=== PATIENT | female | born 1990 | race American Indian/Alaskan Native ===

== ENCOUNTER 2018-08-15 11:17 | Emergency (ER) | payer BC ==
--- NOTE | 2018-08-15 11:34 | Emergency Department Report ---
Chief Complaint: Chest Pain Stated Complaint: CHEST PAIN Time Seen by Provider: 08/15/18 11:30 - HPI History of Present Illness: This is a 28 y.o. female that presents to ER with chest pain. PMH costochondritis. Patient states she is moving out of apartment and lifting heavy items alone. Reports pain is sharp and under left breast radiating to back. Patient reports pain for 3-4 days. - Exam Vital Signs: Vital Signs 08/15/18 11:29 Temperature 98.1 F Pulse Rate 75 Respiratory 16 Rate Blood Pressure 148/83 O2 Sat by Pulse 100 Oximetry MSE screening note: Focused history and physical exam performed. Due to findings the following was ordered: EKG & CXR ACC for further evaluation. ED Disposition for MSE Condition: Stable
--- NOTE | 2018-08-15 11:53 | XRay Report ---
CHEST 2 VIEWS INDICATION: Chest pain. COMPARISON: None similar at this institution. FINDINGS: PA and lateral chest radiographs demonstrate normal cardiomediastinal silhouette. Clear lungs. Intact bones. CONCLUSION: No acute disease in the chest. Thank you for the opportunity to participate in this patient's care.
--- NOTE | 2018-08-15 14:02 | Emergency Department Report ---
ED General Adult HPI - General Chief complaint: Chest Pain Stated complaint: CHEST PAIN Time Seen by Provider: 08/15/18 11:30 Source: patient Mode of arrival: Ambulatory Limitations: No Limitations - History of Present Illness Initial comments: I patient is a 28-year-old Female who states she's been moving boxes struck from her apartment which is on third floor with no elevator as well as carry her child up and down stairs last several days is complaining of some chest wall tenderness. Patient states the pain is mostly in the left chest underneath her left breast and left back that is worse with movement and with deep breathing. Patient denies any cough, congestion diaphoresis nausea vomiting fevers chills at this time. Patient states the pain when she moves is a sharp pain that can be of upwards of 10 out of 10 in severity. Patient states when she still which is not breathing deeply pain his right mandible just a dull ache. Severity scale (0 -10): 10 - Related Data Previous Rx's Medication Instructions Recorded Last Taken Type HYDROcodone/ACETAMINOPHEN 1 each PO Q6HR PRN #12 tablet 08/15/18 Unknown Rx [Hydrocodone-Acetamin 5-325 mg] Ibuprofen [Ibu] 800 mg PO Q8H PRN #20 tablet 08/15/18 Unknown Rx methOCARBAMOL [Robaxin TAB] 500 mg PO Q6H PRN #14 tablet 08/15/18 Unknown Rx Allergies Allergy/AdvReac Type Severity Reaction Status Date / Time No Known Allergies Allergy Verified 08/15/18 11:19 ED Review of Systems ROS: Stated complaint: CHEST PAIN Other details as noted in HPI Comment: All other systems reviewed and negative ED Past Medical Hx - Past Medical History Additional medical history: COSTOCHONDRITIS - Social History Smoking Status: Never Smoker Substance Use Type: None - Medications Home Medications: Home Medications Medication Instructions Recorded Confirmed Last Taken Type HYDROcodone/ACETAMINOPHEN 1 each PO Q6HR PRN #12 tablet 08/15/18 Unknown Rx [Hydrocodone-Acetamin 5-325 mg] Ibuprofen [Ibu] 800 mg PO Q8H PRN #20 tablet 08/15/18 Unknown Rx methOCARBAMOL [Robaxin TAB] 500 mg PO Q6H PRN #14 tablet 08/15/18 Unknown Rx ED Physical Exam - General Limitations: No Limitations General appearance: alert, in no apparent distress - Head Head exam: Present: atraumatic, normocephalic - Eye Eye exam: Present: normal appearance - ENT ENT exam: Present: mucous membranes moist - Neck Neck exam: Present: normal inspection - Respiratory Respiratory exam: Present: normal lung sounds bilaterally. Absent: respiratory distress, wheezes, rales, rhonchi, chest wall tenderness - Cardiovascular Cardiovascular Exam: Present: regular rate, normal rhythm. Absent: systolic murmur, diastolic murmur, rubs, gallop - GI/Abdominal GI/Abdominal exam: Present: soft, normal bowel sounds. Absent: distended, tenderness, guarding, rebound - Extremities Exam Extremities exam: Present: normal inspection - Back Exam Back exam: Present: normal inspection - Neurological Exam Neurological exam: Present: alert, oriented X3 - Psychiatric Psychiatric exam: Present: normal affect, normal mood - Skin Skin exam: Present: warm, dry, intact, normal color. Absent: rash ED Course Vital Signs 08/15/18 11:29 Temperature 98.1 F Pulse Rate 75 Respiratory 16 Rate Blood Pressure 148/83 O2 Sat by Pulse 100 Oximetry ED Medical Decision Making - Radiology Data Chest x-ray is within normal limits Critical care attestation.: If time is entered above; I have spent that time in minutes in the direct care of this critically ill patient, excluding procedure time. ED Disposition Clinical Impression: Costochondral chest pain Disposition: -01 TO HOME OR SELFCARE Is pt being admited?: No Does the pt Need Aspirin: No Condition: Stable Instructions: Costochondritis (ED) Referrals: FLORECITA PARIS MD [Primary Care Provider] - 3-5 Days Time of Disposition: 14:02
[2018-08-15 14:17] VITALS: BP 137/88
== END 2018-08-15 14:17 | disposition home or self-care (01) ==
LOC: ED 11:17
DX: M94.0 Chondrocostal junction syndrome [Tietze] (principal)
CPT/HCPCS: 71046; 93005; 93010

== ENCOUNTER 2020-02-29 01:27 | Emergency (ER) | payer BC, OTHER ==
[2020-02-29 02:25] VITALS: BP 159/90
[2020-02-29 02:33] LABS: Basophils # (Auto) 0.1 K/mm3 (0.0-0.1); Basophils % (Auto) 1.2 % (0.0-1.8); Eosinophils # (Auto) 0.1 K/mm3 (0.0-0.4); Eosinophils % (Auto) 2.1 % (0.0-4.3); Hematocrit 36.2 % (30.3-42.9); Hemoglobin 12.3 gm/dl (10.1-14.3); Lymphocytes # (Auto) 3.4 K/mm3 (1.2-5.4); Lymphocytes % (Auto) 48.6 % (13.4-35.0); Mean Corpuscular HGB Conc 34 % (30-34); Mean Corpuscular Volume 86 fl (79-97); Monocytes # (Auto) 0.6 K/mm3 (0.0-0.8); Monocytes % (Auto) 8.1 % (0.0-7.3); Platelet Count 431 K/mm3 (140-440); Red Blood Count 4.22 M/mm3 (3.65-5.03); Red Cell Distribution Width 15.4 % (13.2-15.2)
[2020-02-29 02:34] LABS: Blood Urea Nitrogen 11 mg/dL (7-17); Calcium 9.6 mg/dL (8.4-10.2); Hemolysis Index 3
[2020-02-29 02:38] LABS: BUN/Creatinine Ratio 16
--- NOTE | 2020-02-29 02:45 | Emergency Department Report ---
ED General Adult HPI - General Chief complaint: Neuro Symptoms/Deficit Stated complaint: ALLERGIC REACTION PUI?: No Time Seen by Provider: 02/29/20 02:29 Source: patient Mode of arrival: Ambulatory Limitations: No Limitations - History of Present Illness Initial comments: Chief complaint: "There is something wrong with this medication." HPI: This is a 29-year-old female with history of PCOS and acne who has had tingling throughout her body after taking 2 doses of spironolactone. She started 50 mg doses of spironolactone in order to address acne. After taking both doses she developed tingling of body face extremities. Advice nurse instructed her to come to the emergency department to rule out hypokalemia. Patient denies lip swelling. She denies shortness of breath. She denies new rash. She is currently symptom-free at this moment. -: Gradual, days(s) (2 nights ago after first dose of spironolactone) Location: head, face, chest, abdomen, left, right, lower extremity Severity scale (0 -10): 0 Quality: other (Tingling) Consistency: now resolved Improves with: other (Discontinuing spironolactone) Worsens with: medication (Symptoms occurred after spironolactone intake) Associated Symptoms: denies other symptoms Treatments Prior to Arrival: none - Related Data Previous Rx's Medication Instructions Recorded Last Taken Type HYDROcodone/ACETAMINOPHEN 1 each PO Q6HR PRN #12 tablet 08/15/18 Unknown Rx [Hydrocodone-Acetamin 5-325 mg] Ibuprofen [Ibu] 800 mg PO Q8H PRN #20 tablet 08/15/18 Unknown Rx methOCARBAMOL [Robaxin TAB] 500 mg PO Q6H PRN #14 tablet 08/15/18 Unknown Rx Allergies Allergy/AdvReac Type Severity Reaction Status Date / Time No Known Allergies Allergy Verified 08/15/18 11:19 ED Review of Systems ROS: Stated complaint: ALLERGIC REACTION Other details as noted in HPI Comment: All other systems reviewed and negative Respiratory: denies: cough, shortness of breath Cardiovascular: denies: chest pain Neurological: paresthesias. denies: headache, weakness, numbness, confusion, abnormal gait, vertigo ED Past Medical Hx - Past Medical History Previous Medical History?: Yes Additional medical history: COSTOCHONDRITIS,. PCOS - Surgical History Past Surgical History?: Yes Additional Surgical History: - Social History Smoking Status: Never Smoker Substance Use Type: Marijuana - Medications Home Medications: Home Medications Medication Instructions Recorded Confirmed Last Taken Type HYDROcodone/ACETAMINOPHEN 1 each PO Q6HR PRN #12 tablet 08/15/18 Unknown Rx [Hydrocodone-Acetamin 5-325 mg] Ibuprofen [Ibu] 800 mg PO Q8H PRN #20 tablet 08/15/18 Unknown Rx methOCARBAMOL [Robaxin TAB] 500 mg PO Q6H PRN #14 tablet 08/15/18 Unknown Rx ED Physical Exam - General Limitations: No Limitations General appearance: alert, in no apparent distress, other (Pleasant, ambulatory without difficulty, talkative, appears comfortable, well-appearing) - Head Head exam: Present: atraumatic, normocephalic - Eye Eye exam: Present: normal appearance - ENT ENT exam: Present: mucous membranes moist - Neck Neck exam: Present: normal inspection, full ROM - Respiratory Respiratory exam: Present: normal lung sounds bilaterally. Absent: respiratory distress, wheezes, rales, rhonchi - Cardiovascular Cardiovascular Exam: Present: regular rate, normal rhythm, normal heart sounds. Absent: systolic murmur, diastolic murmur, rubs, gallop - GI/Abdominal GI/Abdominal exam: Present: soft, normal bowel sounds. Absent: distended, tenderness, guarding, rebound - Extremities Exam Extremities exam: Present: normal inspection - Neurological Exam Neurological exam: Present: alert, oriented X3 - Psychiatric Psychiatric exam: Present: normal affect, normal mood - Skin Skin exam: Present: warm, dry, intact, normal color. Absent: rash ED Course Vital Signs 02/29/20 02/29/20 01:48 02:24 Temperature 97.7 F Pulse Rate 81 75 Respiratory 18 18 Rate Blood Pressure 157/104 159/90 [Left] O2 Sat by Pulse 99 98 Oximetry ED Medical Decision Making - Lab Data Result diagrams: 02/29/20 01:52 02/29/20 01:52 Laboratory Results - last 24 hr 02/29/20 02/29/20 02/29/20 01:52 01:52 01:52 WBC 7.0 RBC 4.22 Hgb 12.3 Hct 36.2 MCV 86 MCH 29 MCHC 34 RDW 15.4 H Plt Count 431 Lymph % (Auto) 48.6 H [place] % (Auto) 8.1 H Eos % (Auto) 2.1 Baso % (Auto) 1.2 Lymph # (Auto) 3.4 [place] # (Auto) 0.6 Eos # (Auto) 0.1 Baso # (Auto) 0.1 Seg Neutrophils % 40.0 Seg Neutrophils # 2.8 Sodium 135 L Potassium 3.7 Chloride 101.5 Carbon Dioxide 23 Anion Gap 14 BUN 11 Creatinine 0.7 Estimated GFR > 60 BUN/Creatinine Ratio 16 Glucose 92 Calcium 9.6 HCG, Qual Negative - Medical Decision Making Ms. Leo is experiencing adverse reaction of spironolactone including generalized tingling. Potassium is normal at 3.7. CBC chemistry within normal limits. test negative. No indication of anaphylaxis or hypersensitivity reaction. No rashes present. 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 Critical care attestation.: If time is entered above; I have spent that time in minutes in the direct care of this critically ill patient, excluding procedure time. ED Disposition Clinical Impression: Adverse drug reaction Disposition: DC-01 TO HOME OR SELFCARE Is pt being admited?: No Does the pt Need Aspirin: No Condition: Stable Additional Instructions: Please return to the ER if you develop rash, tongue swelling, shortness of breath or difficulty swallowing. Referrals: SAMUEL GOINS MD [Primary Care Provider] - 3-5 Days
== END 2020-02-29 02:52 | disposition home or self-care (01) ==
LOC: ED 01:27
DX: R20.2 Paresthesia of skin (principal); T50.995A Adverse effect of other drugs, medicaments and biological substances, initial encounter; T50.0X5A Adverse effect of mineralocorticoids and their antagonists, initial encounter; F12.90 Cannabis use, unspecified, uncomplicated; Z79.899 Other long term (current) drug therapy; Z98.890 Other specified postprocedural states; Y92.89 Other specified places as the place of occurrence of the external cause
CPT/HCPCS: 36415; 80048; 84703; 85025

== ENCOUNTER 2021-08-23 22:12 | Emergency (ER) | payer OTHER ==
[2021-08-23 22:35] VITALS: BP 141/102
[2021-08-24] MEDS ORDERED: LORazepam 1 MG TAB PO ONE (02:12)
[2021-08-24] MEDS ORDERED: ONDANSETRON 4 MG ODT TAB PO ONE (02:12)
[2021-08-24] MEDS ORDERED: ACETAMINOPHEN 500 MG TAB PO ONE (02:12)
--- NOTE | 2021-08-24 02:13 | Emergency Department Report ---
ED General Adult HPI - General Chief complaint: Nausea/Vomiting/Diarrhea Stated complaint: INHALED BUG SPRAY Source: patient Mode of arrival: Ambulatory Limitations: No Limitations - History of Present Illness MD Complaint: anxiety, panic attack -: Sudden, hour(s) (4) Location: head, chest Radiation: non-radiation Quality: dull Consistency: intermittent Improves with: none Worsens with: none Associated Symptoms: denies other symptoms, chest pain (Chest tightness). denies: confusion Treatments Prior to Arrival: none - Related Data Previous Rx's Medication Instructions Recorded Last Taken Type HYDROcodone/ACETAMINOPHEN 1 each PO Q6HR PRN #12 tablet 08/15/18 Unknown Rx [Hydrocodone-Acetamin 5-325 mg] Ibuprofen [Ibu] 800 mg PO Q8H PRN #20 tablet 08/15/18 Unknown Rx methOCARBAMOL [Robaxin TAB] 500 mg PO Q6H PRN #14 tablet 08/15/18 Unknown Rx hydrOXYzine PAMOATE [Vistaril] 25 mg PO Q6HR PRN #30 capsule 08/24/21 Unknown Rx Allergies Allergy/AdvReac Type Severity Reaction Status Date / Time No Known Allergies Allergy Verified 08/15/18 11:19 ED Review of Systems ROS: Stated complaint: INHALED BUG SPRAY Other details as noted in HPI ED Past Medical Hx - Past Medical History Additional medical history: COSTOCHONDRITIS,. PCOS - Surgical History Additional Surgical History: - Social History Smoking Status: Never Smoker Substance Use Type: Marijuana - Medications Home Medications: Home Medications Medication Instructions Recorded Confirmed Last Taken Type HYDROcodone/ACETAMINOPHEN 1 each PO Q6HR PRN #12 tablet 08/15/18 Unknown Rx [Hydrocodone-Acetamin 5-325 mg] Ibuprofen [Ibu] 800 mg PO Q8H PRN #20 tablet 08/15/18 Unknown Rx methOCARBAMOL [Robaxin TAB] 500 mg PO Q6H PRN #14 tablet 08/15/18 Unknown Rx hydrOXYzine PAMOATE [Vistaril] 25 mg PO Q6HR PRN #30 capsule 08/24/21 Unknown Rx ED Physical Exam - General Limitations: No Limitations ED Course Vital Signs 08/23/21 22:34 Temperature 98.1 F Pulse Rate 100 H Respiratory 16 Rate Blood Pressure 141/102 O2 Sat by Pulse 100 Oximetry Critical care attestation.: If time is entered above; I have spent that time in minutes in the direct care of this critically ill patient, excluding procedure time. ED Disposition Clinical Impression: Anxiety as acute reaction to exceptional stress, Panic attack as reaction to stress, Exposure to chemical inhalation Disposition: 01 HOME / SELF CARE / HOMELESS Is pt being admited?: No Does the pt Need Aspirin: No Condition: Stable Instructions: Panic Attack, [id number], Generalized Anxiety Disorder, Adult Additional Instructions: Take medication with food, drink plenty of fluids and follow-up with your primary care physician in 7 to 10 days for reevaluation. Return to the ED immediately if symptoms get worse. Prescriptions: hydrOXYzine PAMOATE [Vistaril] 25 mg PO Q6HR PRN #30 capsule PRN Reason: Anxiety Referrals: [facility] [Provider Group] - 3-5 Days Forms: Work/School Release Form(ED) Time of Disposition: 02:10 Print Language: FRISIAN
== END 2021-08-24 02:52 | disposition home or self-care (01) ==
LOC: ED 22:12
DX: F41.9 Anxiety disorder, unspecified (principal); F43.0 Acute stress reaction; F41.0 Panic disorder [episodic paroxysmal anxiety]; T59.91XA Toxic effect of unspecified gases, fumes and vapors, accidental (unintentional), initial encounter; F12.90 Cannabis use, unspecified, uncomplicated
CPT/HCPCS: 99282; J3490; Q0162

== ENCOUNTER 2021-10-25 00:13 | Emergency (ER) | payer OTHER | END 2021-10-25 02:15 | disposition left against medical advice (07) | LOC: ED 00:13 | DX: I10 Essential (primary) hypertension (principal); Z53.21 Procedure and treatment not carried out due to patient leaving prior to being seen by health care provider ==